=== PATIENT | female | born 1990 | race Caucasian/White ===

== ENCOUNTER 2016-05-13 00:01 | Emergency (ER) | payer OTHER ==
--- NOTE | 2016-05-13 00:55 | ED CLINICAL REPORT ---
Clinical Report - Physicians/Mid Levels [facility] [address] [place] [address] 05/13/2016 0:04 Patient: TARUN MARTINEZ I Time Seen: 00:18. Arrived- By private vehicle. Historian- patient. HISTORY OF PRESENT ILLNESS Chief Complaint: COUGH, SORE THROAT and FEVER. This started about 2 days ago and is still present. It was gradual in onset and has been constant and waxing/waning. The patient has had a cough, a sore throat, hoarseness, nasal congestion and fever. She has had chills, muscle aches and a nasal discharge. No sputum production, difficulty breathing or chest discomfort. Additional history - The patient has had contact with a sick significant other. They have had different symptoms. REVIEW OF SYSTEMS No calf pain, chest pain, pedal edema, palpitations or abdominal pain. No black stools, bloody stools, constipation, diarrhea or nausea. No vomiting or urinary problems. All systems otherwise negative, except as recorded above. SOCIAL HISTORY Current every day heavy tobacco smoker (cigarette)- less than 1 pack per day. History of drug use: methamphetamines. Is a recovering addict. No alcohol use. FAMILY HISTORY Denies family medical history. ADDITIONAL NOTES The nursing notes have been reviewed. PHYSICAL EXAM Vital Signs: 05/13/2016 00:20 BP: 125/78. HR: 128. RR: 20. O2 saturation: 99%. Temp: 98.3 F. Have been reviewed. Appearance: Alert. Head: Tenderness present to percussion/palpation of the sinuses. Eyes: Pupils equal, round and reactive to light. ENT: Moderate, thick, green nasal discharge present. Pharynx normal. No pharyngeal erythema or tonsillar exudate. Neck: Normal inspection. Neck supple. CVS: Normal heart rate and rhythm. Heart sounds normal. Respiratory: No respiratory distress. Breath sounds normal. Abdomen: Soft and nontender. No organomegaly. Back: Normal inspection. No CVA tenderness. Skin: Skin warm and dry. Normal skin color. No rash. Normal skin turgor. Extremities: Extremities exhibit normal ROM. No lower extremity edema. LABS, X-RAYS, AND EKG Laboratory Tests: Urine: (TORI: 05/13/2016 00:15) ( [facility] 05/13/2016 00:37) Final results Test Result Flag Units (Reference) URINE NEGATIVE Urine Drug Screen: (TORI: 05/13/2016 00:15) ( [facility] [place] 05/13/2016 00:47) Final results Test Result Flag Units (Reference) AMPHETAMINE/METHAMPHETAMINE POSITIVE H (NEGATIVE) BARBITURATE NEGATIVE (NEGATIVE) BENZODIAZEPINE NEGATIVE (NEGATIVE) CANNABINOID NEGATIVE (NEGATIVE) COCAINE NEGATIVE (NEGATIVE) ECSTASY POSITIVE H (NEGATIVE) METHADONE NEGATIVE (NEGATIVE) OPIATE NEGATIVE (NEGATIVE) The urine drug screen is a qualitative screening test fordrug overdose and abuse. All screen results should beconsidered as presumptive.Drugs screened for are as follows:BenzodiazepinesCocaineAmphetamines/MetamphetaminesTHC (Tetrahydrocannabinol)OpiatesBarbituratesEcstasyMethadonePositive results are unconfirmed. For confirmation, notifythe lab for the specimen to be sent to the reference lab.All confirmations must be performed by a differentmethodology.The ingestion of natural herbal and plant productscontaining Ephedra/Ephedra metabolites can produce in urineone or more substances capable of cross reacting withamphetamine/methamphetamine immunoassays. These testsprovide a preliminary result only. A more specificalternative chemical method must be used to obtain aconfirmed analytical result. Rapid Influenza Screen: (TORI: 05/13/2016 00:20) ( [facility] [place] 05/13/2016 00:31) Final results SPECIMEN DESCRIPTION: GREEN THICK Test Result Flag Units (Reference) RAPID INFLUENZA SCREEN CALLED TO: NA -- DATE: 05/13/16 INFLUENZA A: NEGATIVE SCREEN FOR INFLUENZA A INFLUENZA B: NEGATIVE SCREEN FOR INFLUENZA B . PROGRESS AND PROCEDURES Course of Care: Patient is stable. Patient/family counseled. Old medical records ordered. Old records unavailable. Disposition: Discharged. Condition: stable. CLINICAL IMPRESSION Acute upper respiratory infection. Substance abuse- methamphetamines. INSTRUCTIONS Drink plenty of fluids. Do not smoke- benefits of smoking cessation discussed (>3 -10 minutes). Seek medical help to quit smoking. Warnings: GENERAL WARNINGS: Return or contact your physician immediately if your condition worsens or changes unexpectedly, if not improving as expected, or if other problems arise. Understanding of the discharge instructions verbalized by patient. Follow-up with: [facility], , , [address], , [place], [address] Follow up in five days if not better. (Electronically signed by Johnny Cleary MD 05/21/2016 11:55)
--- NOTE | 2016-05-13 00:55 | ED ORDER SUMMARY ---
..... Patient: TARUN MARTINEZ I OrderSheet [facility] VisitID: [id number] [place] [address] 25y, F Registration Date/Time: 05/13/2016 ORDER SHEET Weight: 54.4 kg Allergies: No Known Drug Allergy GENERAL ORDERS: Rapid Influenza Screen (Nasal Pharyngeal) (green thick) Urgent (00:19 05/13/2016 EBonham verbal order read back to Amrik GRAY) (Ack 0:23 CHagerty ER Director Cost) (0:23 CHagerty ER Director Cost) Urine Drug Screen Urgent (00:20 05/13/2016 EBonham verbal order read back to Amrik GRAY) (Ack 0:23 CHagerty ER Director Cost) (0:24 EBonham) Urine Urgent (00:20 05/13/2016 EBonham verbal order read back to Amrik GRAY) (Ack 0:23 CHagerty ER Director Cost) (0:24 EBonham) MEDICATION ORDERS: IV FLUIDS: ORDER SHEET NOTES: [Electronically signed by Holland Garcia R.N. (01:05 05/13/2016)] [Electronically signed by Johnny Cleary MD (11:55 05/21/2016)] [Electronically locked/signed by Holland Garcia R.N. (01:05 05/13/2016)]
--- NOTE | 2016-05-13 00:55 | ED NURSING NOTES ---
Clinical Report - Nurses [facility] [address] [place] [address] 05/13/2016 0:04 Patient: TARUN MARTINEZ I TRIAGE Triage time 0005. Acuity: LEVEL 3. Chief Complaint: FEVER, COUGH, SORE THROAT and BODY ACHES. Alert. --00:23 Kathi Su 00:20 05/13/16. BP: 125/78. HR: 128. RR: 20. O2 saturation: 99%. Temp: 98.3 F. Pain level now 05/15. --00:23 Kathi Su. Weight: 54.4 kg. Height/Length: 61 inches. BMI: 22.7. --00:04 Kathi Su. Medications None. --00:21 Kathi Su. Allergies No Known Drug Allergy. --00:22 Kathi Su. History Arrived by private vehicle. Historian: patient. Onset. (10 days ago). ( Pt sts slight cold x 10 days ago, last few days cough and feeling sob severe). 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 PAST MEDICAL HX: Negative. SOCIAL HX: Light tobacco smoker (cigarette)- less than 1/2 a pack per day. History of drug use: methamphetamines. Is a recovering addict. --00:23 Kathi Su. Interventions ID band on patient. To treatment room. --00:23 Kathi Su. PHYSICAL ASSESSMENT Ambulatory to room. GENERAL / NEURO / PSYCH: Alert. Oriented X 4. Appears in distress. HEENT: Pupils equal, round and reactive to light. Mucous membranes are pink. RESPIRATORY: Respirations not labored. Nonproductive cough. Chest nontender. Breath sounds within normal limits. CVS: Normal sinus rhythm noted. Capillary refill less than 2 seconds. Pulses within normal limits. GI / : Abdomen soft and nontender and normal bowel sounds. SKIN: Skin intact. Skin is warm and dry. Normal skin turgor. --00:24 Kathi Su. NURSING PROGRESS NOTES Urine collected. Flu swab obtained. --00:24 Kathi Su Patient gowned. Reassurance given. Patient ready for evaluation- chart flagged. --00:24 Kathi Su 01:00. The patient is calm and resting quietly. RESPIRATORY: No respiratory distress. SKIN: Skin is warm and dry. --01:05 Holland Garcia R.N. DISPOSITION / DISCHARGE Departure time: 01:02. Condition at departure: stable. ( Dr. Cleary notified of pt vitals prior to discharge). No learning barriers present. Discharge instructions provided and reviewed with the patient. Patient verbalized understanding. Written instructions provided in Filipino. The patient was discharged home and unaccompanied at time of discharge. She left the Emergency Department ambulatory and via private vehicle. Patient driving. FALL RISK ASSESSMENT: Fall risk assessment completed. No fall risk identified. --01:03 Holland Garcia R.N. 01:01 05/13/16. BP: 121/75. HR: 115. RR: 17. O2 saturation: 96% on room air. Pain level now: 0/10. --01:03 Holland Garcia R.N. Locked/Released at 05/13/2016 1:05 by Holland Garcia R.N.
--- NOTE | 2016-05-13 00:55 | ED ORDER SUMMARY ---
..... Patient: TARUN MARTINEZ I OrderSheet [facility] VisitID: [id number] [place] [address] 25y, F Registration Date/Time: 05/13/2016 ORDER SHEET Weight: 54.4 kg Allergies: No Known Drug Allergy GENERAL ORDERS: Rapid Influenza Screen (Nasal Pharyngeal) (green thick) Urgent (00:19 05/13/2016 EBonham verbal order read back to Amrik GRAY) (Ack 0:23 CHagerty ER Cooker Loader) (0:23 CHagerty ER Cooker Loader) Urine Drug Screen Urgent (00:20 05/13/2016 EBonham verbal order read back to Amrik GRAY) (Ack 0:23 CHagerty ER Cooker Loader) (0:24 EBonham) Urine Urgent (00:20 05/13/2016 EBonham verbal order read back to Amrik GRAY) (Ack 0:23 CHagerty ER Cooker Loader) (0:24 EBonham) MEDICATION ORDERS: IV FLUIDS: ORDER SHEET NOTES: [Electronically signed by Holland Garcia R.N. (01:05 05/13/2016)] [Electronically signed by Johnny Cleary MD (11:55 05/21/2016)] [Electronically locked/signed by Holland Garcia R.N. (01:05 05/13/2016)]
--- NOTE | 2016-05-13 00:55 | ED CLINICAL REPORT ---
Clinical Report - Physicians/Mid Levels [facility] [address] [place] [address] 05/13/2016 0:04 Patient: TARUN MARTINEZ I Time Seen: 00:18. Arrived- By private vehicle. Historian- patient. HISTORY OF PRESENT ILLNESS Chief Complaint: COUGH, SORE THROAT and FEVER. This started about 2 days ago and is still present. It was gradual in onset and has been constant and waxing/waning. The patient has had a cough, a sore throat, hoarseness, nasal congestion and fever. She has had chills, muscle aches and a nasal discharge. No sputum production, difficulty breathing or chest discomfort. Additional history - The patient has had contact with a sick significant other. They have had different symptoms. REVIEW OF SYSTEMS No calf pain, chest pain, pedal edema, palpitations or abdominal pain. No black stools, bloody stools, constipation, diarrhea or nausea. No vomiting or urinary problems. All systems otherwise negative, except as recorded above. SOCIAL HISTORY Current every day heavy tobacco smoker (cigarette)- less than 1 pack per day. History of drug use: methamphetamines. Is a recovering addict. No alcohol use. FAMILY HISTORY Denies family medical history. ADDITIONAL NOTES The nursing notes have been reviewed. PHYSICAL EXAM Vital Signs: 05/13/2016 00:20 BP: 125/78. HR: 128. RR: 20. O2 saturation: 99%. Temp: 98.3 F. Have been reviewed. Appearance: Alert. Head: Tenderness present to percussion/palpation of the sinuses. Eyes: Pupils equal, round and reactive to light. ENT: Moderate, thick, green nasal discharge present. Pharynx normal. No pharyngeal erythema or tonsillar exudate. Neck: Normal inspection. Neck supple. CVS: Normal heart rate and rhythm. Heart sounds normal. Respiratory: No respiratory distress. Breath sounds normal. Abdomen: Soft and nontender. No organomegaly. Back: Normal inspection. No CVA tenderness. Skin: Skin warm and dry. Normal skin color. No rash. Normal skin turgor. Extremities: Extremities exhibit normal ROM. No lower extremity edema. LABS, X-RAYS, AND EKG Laboratory Tests: Urine: (TORI: 05/13/2016 00:15) ( [facility] [place] 05/13/2016 00:37) Final results Test Result Flag Units (Reference) URINE NEGATIVE Urine Drug Screen: (TORI: 05/13/2016 00:15) ( [facility] 05/13/2016 00:47) Final results Test Result Flag Units (Reference) AMPHETAMINE/METHAMPHETAMINE POSITIVE H (NEGATIVE) BARBITURATE NEGATIVE (NEGATIVE) BENZODIAZEPINE NEGATIVE (NEGATIVE) CANNABINOID NEGATIVE (NEGATIVE) COCAINE NEGATIVE (NEGATIVE) ECSTASY POSITIVE H (NEGATIVE) METHADONE NEGATIVE (NEGATIVE) OPIATE NEGATIVE (NEGATIVE) The urine drug screen is a qualitative screening test fordrug overdose and abuse. All screen results should beconsidered as presumptive.Drugs screened for are as follows:BenzodiazepinesCocaineAmphetamines/MetamphetaminesTHC (Tetrahydrocannabinol)OpiatesBarbituratesEcstasyMethadonePositive results are unconfirmed. For confirmation, notifythe lab for the specimen to be sent to the reference lab.All confirmations must be performed by a differentmethodology.The ingestion of natural herbal and plant productscontaining Ephedra/Ephedra metabolites can produce in urineone or more substances capable of cross reacting withamphetamine/methamphetamine immunoassays. These testsprovide a preliminary result only. A more specificalternative chemical method must be used to obtain aconfirmed analytical result. Rapid Influenza Screen: (TORI: 05/13/2016 00:20) ( [facility] 05/13/2016 00:31) Final results SPECIMEN DESCRIPTION: GREEN THICK Test Result Flag Units (Reference) RAPID INFLUENZA SCREEN CALLED TO: NA -- DATE: 05/13/16 INFLUENZA A: NEGATIVE SCREEN FOR INFLUENZA A INFLUENZA B: NEGATIVE SCREEN FOR INFLUENZA B . PROGRESS AND PROCEDURES Course of Care: Patient is stable. Patient/family counseled. Old medical records ordered. Old records unavailable. Disposition: Discharged. Condition: stable. CLINICAL IMPRESSION Acute upper respiratory infection. Substance abuse- methamphetamines. INSTRUCTIONS Drink plenty of fluids. Do not smoke- benefits of smoking cessation discussed (>3 -10 minutes). Seek medical help to quit smoking. Warnings: GENERAL WARNINGS: Return or contact your physician immediately if your condition worsens or changes unexpectedly, if not improving as expected, or if other problems arise. Understanding of the discharge instructions verbalized by patient. Follow-up with: [facility], , , [address], , [place], [address] Follow up in five days if not better. (Electronically signed by Johnny Cleary MD 05/21/2016 11:55)
--- NOTE | 2016-05-13 00:55 | ED NURSING NOTES ---
Clinical Report - Nurses [facility] [address] [place] [address] 05/13/2016 0:04 Patient: TARUN MARTINEZ I TRIAGE Triage time 0005. Acuity: LEVEL 3. Chief Complaint: FEVER, COUGH, SORE THROAT and BODY ACHES. Alert. --00:23 Kathi Su 00:20 05/13/16. BP: 125/78. HR: 128. RR: 20. O2 saturation: 99%. Temp: 98.3 F. Pain level now 05/15. --00:23 Kathi Su. Weight: 54.4 kg. Height/Length: 61 inches. BMI: 22.7. --00:04 Kathi Su. Medications None. --00:21 Kathi Su. Allergies No Known Drug Allergy. --00:22 Kathi Su. History Arrived by private vehicle. Historian: patient. Onset. (10 days ago). ( Pt sts slight cold x 10 days ago, last few days cough and feeling sob severe). 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 PAST MEDICAL HX: Negative. SOCIAL HX: Light tobacco smoker (cigarette)- less than 1/2 a pack per day. History of drug use: methamphetamines. Is a recovering addict. --00:23 Kathi Su. Interventions ID band on patient. To treatment room. --00:23 Kathi Su. PHYSICAL ASSESSMENT Ambulatory to room. GENERAL / NEURO / PSYCH: Alert. Oriented X 4. Appears in distress. HEENT: Pupils equal, round and reactive to light. Mucous membranes are pink. RESPIRATORY: Respirations not labored. Nonproductive cough. Chest nontender. Breath sounds within normal limits. CVS: Normal sinus rhythm noted. Capillary refill less than 2 seconds. Pulses within normal limits. GI / : Abdomen soft and nontender and normal bowel sounds. SKIN: Skin intact. Skin is warm and dry. Normal skin turgor. --00:24 Kathi Su. NURSING PROGRESS NOTES Urine collected. Flu swab obtained. --00:24 Kathi Su Patient gowned. Reassurance given. Patient ready for evaluation- chart flagged. --00:24 Kathi Su 01:00. The patient is calm and resting quietly. RESPIRATORY: No respiratory distress. SKIN: Skin is warm and dry. --01:05 Holland Garcia R.N. DISPOSITION / DISCHARGE Departure time: 01:02. Condition at departure: stable. ( Dr. Cleary notified of pt vitals prior to discharge). No learning barriers present. Discharge instructions provided and reviewed with the patient. Patient verbalized understanding. Written instructions provided in Algerian. The patient was discharged home and unaccompanied at time of discharge. She left the Emergency Department ambulatory and via private vehicle. Patient driving. FALL RISK ASSESSMENT: Fall risk assessment completed. No fall risk identified. --01:03 Holland Garcia R.N. 01:01 05/13/16. BP: 121/75. HR: 115. RR: 17. O2 saturation: 96% on room air. Pain level now: 0/10. --01:03 Holland Garcia R.N. Locked/Released at 05/13/2016 1:05 by Holland Garcia R.N.
--- NOTE | 2016-05-21 11:55 | ED MAR SUMMARY ---
..... Medication Administration Record [facility] [address] [place], [place] [id number] Patient: TARUN MARTINEZ I Visit ID: [id number] 25y, F Weight: 54.4 kg Height/Length: 61 in BMI: 22.7 ALLERGIES: No Known Drug Allergy
--- NOTE | 2016-05-21 11:55 | ED MED RECONCILIATION SUMMARY ---
Patient: TARUN MARTINEZ I Medication Reconciliation Report [facility] VisitID: [id number] [address] [place] [place] [address] 25y, F Registration Date/Time: 05/13/2016 Weight: 54.4 kg Height/Length: 61 in. BMI: 22.7 ALLERGIES: No Known Drug Allergy The patient's Home Medications are listed below: NONE. The source(s) of the original Home Medication information: Not obtained. The following Medications were given to the patient in the Emergency Department: None. The following Medications were prescribed to the patient: None.
--- NOTE | 2016-05-21 11:55 | ED MAR SUMMARY ---
..... Medication Administration Record [facility] [address] [place], [place] [id number] Patient: TARUN MARTINEZ I Visit ID: [id number] 25y, F Weight: 54.4 kg Height/Length: 61 in BMI: 22.7 ALLERGIES: No Known Drug Allergy
--- NOTE | 2016-05-21 11:55 | ED DISCHARGE INSTRUCTIONS ---
Patient: TARUN MARTINEZ I General Instructions [facility] VisitID: [id number] [address] [place] [address] 25y, F Registration Date/Time: 05/13/2016 Acute upper respiratory infection. Substance abuse- methamphetamines. INSTRUCTIONS Drink plenty of fluids. Do not smoke- benefits of smoking cessation discussed (>3 -10 minutes). Seek medical help to quit smoking. Warnings: GENERAL WARNINGS: Return or contact your physician immediately if your condition worsens or changes unexpectedly, if not improving as expected, or if other problems arise. Understanding of the discharge instructions verbalized by patient. Follow-up with: [facility], , , [address], [place], [id number] Follow up in five days if not better. ADDITIONAL INFORMATION Viral Respiratory Illness [Adult] You have an Upper Respiratory Illness (URI) caused by a virus. This illness is contagious during the first few days. It is spread through the air by coughing and sneezing or by direct contact (touching the sick person and then touching your own eyes, nose or mouth). Most viral illnesses go away within 7-10 days with rest and simple home remedies. Sometimes, the illness may last for several weeks. Antibiotics will not kill a virus and are generally not prescribed for this condition. Home Care: 1) If symptoms are severe, rest at home for the first 2-3 days. When you resume activity, don't let yourself get too tired. 2) Avoid being exposed to cigarette smoke (yours or others). 3) Tylenol (acetaminophen) or ibuprofen (Advil, Motrin) will help fever, muscle aching and headache. (Persons under 18 with fever should not take aspirin since this may cause liver damage.) 4) Your appetite may be poor, so a light diet is fine. Avoid dehydration by drinking 6-8 glasses of fluids per day (water, soft drinks, juices, tea, soup). Extra fluids will help loosen secretions in the nose and lungs. 5) Ldhd-ims-cjmrpwc cold medicines will not shorten the length of time youre sick, but they may be helpful for the following symptoms: cough (Robitussin DM); sore throat (Chloraseptic lozenges or spray); nasal and sinus congestion (Actifed, Sudafed, Chlortrimeton). Follow Up with your doctor or as advised if you dont improve over the next week. Get Prompt Medical Attention if any of the following occur: -- Cough with lots of colored sputum (mucus) or blood in your sputum -- Chest pain, shortness of breath, wheezing or have trouble breathing -- Severe headache; face, neck or ear pain -- Fever over 100.4 F (38.0 C) for more than three days -- You cant swallow due to throat pain Drug Abuse Use and abuse of such drugs as marijuana, amphetamines (speed, crank), cocaine, heroin or prescription pain medicines (Vicodin, codeine), sedatives and sleeping pills (Valium, Klonopin), PCP, mescaline and LSD may lead to addiction or dependence. Once this occurs, you are at greater risk for any of the following: Craving for the drug and unable to stop using the drug even though you think you want to stop (psychological dependence) Drug withdrawal symptoms if you stop taking the drug (physical dependence) Loss of your job or your family Arrest, conviction and prison sentence for possession of an illegal substance or for driving under the influence of such a substance Accidental injuries to yourself or others while you are under the influence of the drug (in a car or at home). HIV infection (much greater risk if you use IV drugs) Other sexually transmitted diseases (herpes, chlamydia, gonorrhea and others) Severe and fatal infection of the heart valves (if you use IV drugs) Stroke, heart attack, hepatitis B or C, kidney failure from overdose Home Care: Admit you have a drug problem. Ask for help from your family and close friends. Seek professional help. This could be in the form of individual psychotherapy or counseling or an outpatient, inpatient, or residential drug treatment program. Join a self-help group for drug abuse. Avoid friends who abuse drugs themselves or tempt you to continue abusing drugs. Eat a balanced diet and begin a regular exercise program. Follow Up with your doctor or as advised by our staff. Contact one of the resources below for help. National [place] on Alcoholism and Drug Dependence www.ncadd.org 760-639-RJUX Narcotics Anonymous www.na.org 573-552-5348 National Alcohol and Substance Abuse Information Center (for referral to treatment programs) www.addictioncareDctioions.RealDirect 251-731-9586 Get Prompt Medical Attention if any of the following occur: Agitation, anxiety, unable to sleep Unintended weight loss (more than 10 to 15 pounds over 3 months) Seizure Chest pain Fever of 100.4F (38C) or higher, or as directed by your healthcare provider Excess drowsiness or inability to be awakened Shortness of breath Slow breathing under 8 breaths per minute Cough with colored sputum Redness, swelling or tenderness at an injection site How To Quit Smoking Smoking is one of the hardest habits to break. About half of all those who have ever smoked have been able to quit, and most of those (about 70%) who still smoke want to quit. Here are some of the best ways to stop smoking. Keep Trying: It takes most smokers about 8 tries before they are finally able to fully quit. So, the more often you try and fail, the better your chance of quitting the next time! So, don't give up! Go Cold [place]: Most ex-smokers quit cold turkey. Trying to cut back gradually doesn't seem to work as well, perhaps because it continues the smoking habit. Also, it is possible to fool yourself by inhaling more while smoking fewer cigarettes. This results in the same amount of nicotine in your body! Get Support: Support programs can make an important difference, especially for the heavy smoker. These groups offer lectures, methods to change your behavior and peer support. Call the free national Quitline for more information. 055-KCMP-GTN (784-121-5551). Low-cost or free programs are offered by many hospitals, local chapters of the [place] [employer] (832-795-1898) and the [place] [employer] (485-141-5506). Support at home is important too. Non-smokers can help by offering praise and encouragement. If the smoker fails to quit, encourage them to try again! Ktii-Xie-Sqhgmnt Medicines: For those who can't quit on their own, Nicotine Replacement Therapy (NRT) may make quitting much easier. Certain aids such as the nicotine patch, gum and lozenge are available without a prescription. However, it is best to use these under the guidance of your doctor. The skin patch provides a steady supply of nicotine to the body. Nicotine gum and lozenge gives temporary bursts of low levels of nicotine. Both methods take the edge off the craving for cigarettes. WARNING: If you feel symptoms of nicotine overdose, such as nausea, vomiting, dizziness, weakness, or fast heartbeat, stop using these and see your doctor. Prescription Medicines: After evaluating your smoking patterns and prior attempts at quitting, your doctor may offer a prescription medicine such as bupropion (Zyban, Wellbutrin), varenicline (Chantix, Champix), a niocotine inhaler or nasal spray. Each has its unique advantage and side effects which your doctor can review with you. Health Benefits Of Quitting: The benefits of quitting start right away and keep improving the longer you go without smokin minutes: blood pressure and pulse return to normal 8 hours: oxygen levels return to normal 2 days: ability to smell and taste begins to improve as damaged nerves start to regrow 2-3 weeks: circulation and lung function improves 1-9 months: decreased cough, congestion and shortness of breath; less tired 1 year: risk of heart attack decreases by half 5 years: risk of lung cancer decreases by half; risk of stroke becomes the same as a non-smoker For information about how to quit smoking, visit the following links: National Cancer [place] , Clearing the Air, Quit Smoking Today - an online booklet. http://www.smokefree.gov/pubs/clearing_the_air.pdf Smokefree.gov http://smokefree.gov/ QuitNet http://www.quitnet.com/ You have been given the following additional information: Uri, Viral, No Abx (Adult) Drug Abuse Smoking Cessation (Electronically signed by Johnny Cleary MD 05/21/2016 11:55)
--- NOTE | 2016-05-21 11:55 | ED MED RECONCILIATION SUMMARY ---
Patient: TARUN MARTINEZ I Medication Reconciliation Report [facility] VisitID: [id number] [address] [place] [address] 25y, F Registration Date/Time: 05/13/2016 Weight: 54.4 kg Height/Length: 61 in. BMI: 22.7 ALLERGIES: No Known Drug Allergy The patient's Home Medications are listed below: NONE. The source(s) of the original Home Medication information: Not obtained. The following Medications were given to the patient in the Emergency Department: None. The following Medications were prescribed to the patient: None.
--- NOTE | 2016-05-21 11:55 | ED DISCHARGE INSTRUCTIONS ---
Patient: TARUN MARTINEZ I General Instructions [facility] VisitID: [id number] [address] [place] [address] 25y, F Registration Date/Time: 05/13/2016 Acute upper respiratory infection. Substance abuse- methamphetamines. INSTRUCTIONS Drink plenty of fluids. Do not smoke- benefits of smoking cessation discussed (>3 -10 minutes). Seek medical help to quit smoking. Warnings: GENERAL WARNINGS: Return or contact your physician immediately if your condition worsens or changes unexpectedly, if not improving as expected, or if other problems arise. Understanding of the discharge instructions verbalized by patient. Follow-up with: [facility], , , [address], [place], [address] Follow up in five days if not better. ADDITIONAL INFORMATION Viral Respiratory Illness [Adult] You have an Upper Respiratory Illness (URI) caused by a virus. This illness is contagious during the first few days. It is spread through the air by coughing and sneezing or by direct contact (touching the sick person and then touching your own eyes, nose or mouth). Most viral illnesses go away within 7-10 days with rest and simple home remedies. Sometimes, the illness may last for several weeks. Antibiotics will not kill a virus and are generally not prescribed for this condition. Home Care: 1) If symptoms are severe, rest at home for the first 2-3 days. When you resume activity, don't let yourself get too tired. 2) Avoid being exposed to cigarette smoke (yours or others). 3) Tylenol (acetaminophen) or ibuprofen (Advil, Motrin) will help fever, muscle aching and headache. (Persons under 18 with fever should not take aspirin since this may cause liver damage.) 4) Your appetite may be poor, so a light diet is fine. Avoid dehydration by drinking 6-8 glasses of fluids per day (water, soft drinks, juices, tea, soup). Extra fluids will help loosen secretions in the nose and lungs. 5) Asry-vft-gwlabah cold medicines will not shorten the length of time youre sick, but they may be helpful for the following symptoms: cough (Robitussin DM); sore throat (Chloraseptic lozenges or spray); nasal and sinus congestion (Actifed, Sudafed, Chlortrimeton). Follow Up with your doctor or as advised if you dont improve over the next week. Get Prompt Medical Attention if any of the following occur: -- Cough with lots of colored sputum (mucus) or blood in your sputum -- Chest pain, shortness of breath, wheezing or have trouble breathing -- Severe headache; face, neck or ear pain -- Fever over 100.4 F (38.0 C) for more than three days -- You cant swallow due to throat pain Drug Abuse Use and abuse of such drugs as marijuana, amphetamines (speed, crank), cocaine, heroin or prescription pain medicines (Vicodin, codeine), sedatives and sleeping pills (Valium, Klonopin), PCP, mescaline and LSD may lead to addiction or dependence. Once this occurs, you are at greater risk for any of the following: Craving for the drug and unable to stop using the drug even though you think you want to stop (psychological dependence) Drug withdrawal symptoms if you stop taking the drug (physical dependence) Loss of your job or your family Arrest, conviction and alf sentence for possession of an illegal substance or for driving under the influence of such a substance Accidental injuries to yourself or others while you are under the influence of the drug (in a car or at home). HIV infection (much greater risk if you use IV drugs) Other sexually transmitted diseases (herpes, chlamydia, gonorrhea and others) Severe and fatal infection of the heart valves (if you use IV drugs) Stroke, heart attack, hepatitis B or C, kidney failure from overdose Home Care: Admit you have a drug problem. Ask for help from your family and close friends. Seek professional help. This could be in the form of individual psychotherapy or counseling or an outpatient, inpatient, or residential drug treatment program. Join a self-help group for drug abuse. Avoid friends who abuse drugs themselves or tempt you to continue abusing drugs. Eat a balanced diet and begin a regular exercise program. Follow Up with your doctor or as advised by our staff. Contact one of the resources below for help. National [place] on Alcoholism and Drug Dependence www.ncadd.org 803-588-AKTO Narcotics Anonymous www.na.org 904-628-5182 National Alcohol and Substance Abuse Information Center (for referral to treatment programs) www.addictioncareNaturVentionions.Lydia 394-436-6924 Get Prompt Medical Attention if any of the following occur: Agitation, anxiety, unable to sleep Unintended weight loss (more than 10 to 15 pounds over 3 months) Seizure Chest pain Fever of 100.4F (38C) or higher, or as directed by your healthcare provider Excess drowsiness or inability to be awakened Shortness of breath Slow breathing under 8 breaths per minute Cough with colored sputum Redness, swelling or tenderness at an injection site How To Quit Smoking Smoking is one of the hardest habits to break. About half of all those who have ever smoked have been able to quit, and most of those (about 70%) who still smoke want to quit. Here are some of the best ways to stop smoking. Keep Trying: It takes most smokers about 8 tries before they are finally able to fully quit. So, the more often you try and fail, the better your chance of quitting the next time! So, don't give up! Go Cold [place]: Most ex-smokers quit cold turkey. Trying to cut back gradually doesn't seem to work as well, perhaps because it continues the smoking habit. Also, it is possible to fool yourself by inhaling more while smoking fewer cigarettes. This results in the same amount of nicotine in your body! Get Support: Support programs can make an important difference, especially for the heavy smoker. These groups offer lectures, methods to change your behavior and peer support. Call the free national Quitline for more information. 092-ODYO-SBY (391-084-8597). Low-cost or free programs are offered by many hospitals, local chapters of the [place] [employer] (490-335-2442) and the [place] [employer] (619-257-7079). Support at home is important too. Non-smokers can help by offering praise and encouragement. If the smoker fails to quit, encourage them to try again! Czji-Mdf-Anrzhar Medicines: For those who can't quit on their own, Nicotine Replacement Therapy (NRT) may make quitting much easier. Certain aids such as the nicotine patch, gum and lozenge are available without a prescription. However, it is best to use these under the guidance of your doctor. The skin patch provides a steady supply of nicotine to the body. Nicotine gum and lozenge gives temporary bursts of low levels of nicotine. Both methods take the edge off the craving for cigarettes. WARNING: If you feel symptoms of nicotine overdose, such as nausea, vomiting, dizziness, weakness, or fast heartbeat, stop using these and see your doctor. Prescription Medicines: After evaluating your smoking patterns and prior attempts at quitting, your doctor may offer a prescription medicine such as bupropion (Zyban, Wellbutrin), varenicline (Chantix, Champix), a niocotine inhaler or nasal spray. Each has its unique advantage and side effects which your doctor can review with you. Health Benefits Of Quitting: The benefits of quitting start right away and keep improving the longer you go without smokin minutes: blood pressure and pulse return to normal 8 hours: oxygen levels return to normal 2 days: ability to smell and taste begins to improve as damaged nerves start to regrow 2-3 weeks: circulation and lung function improves 1-9 months: decreased cough, congestion and shortness of breath; less tired 1 year: risk of heart attack decreases by half 5 years: risk of lung cancer decreases by half; risk of stroke becomes the same as a non-smoker For information about how to quit smoking, visit the following links: National Cancer [place] , Clearing the Air, Quit Smoking Today - an online booklet. http://www.smokefree.gov/pubs/clearing_the_air.pdf Smokefree.gov http://smokefree.gov/ QuitNet http://www.quitnet.com/ You have been given the following additional information: Uri, Viral, No Abx (Adult) Drug Abuse Smoking Cessation (Electronically signed by Johnny Cleary MD 05/21/2016 11:55)
== END 2016-05-13 01:02 | disposition home or self-care (01) ==
LOC: ED SRH 00:01
DX: J06.9 Acute upper respiratory infection, unspecified (principal); F15.10 Other stimulant abuse, uncomplicated; F17.210 Nicotine dependence, cigarettes, uncomplicated
CPT/HCPCS: 91400; 92760; 92761; 92762; 92763; 92764; 92765; 92766; 92767; 93070

== ENCOUNTER 2016-08-15 21:18 | Emergency (ER) | payer OTHER ==
--- NOTE | 2016-08-15 23:34 | ED ORDER SUMMARY ---
..... Patient: TARUN MARTINEZ I OrderSheet [facility] VisitID: [id number] [place] [address] 26y, F Registration Date/Time: 08/15/2016 ORDER SHEET Weight: 56.6 kg (stated) Allergies: No Known Drug Allergy GENERAL ORDERS: UA-Culture if indicated Urgent (21:38 08/15/2016 DDavis R.N. per protocol) (21:38 DDavis R.N.) Urine Urgent (21:38 08/15/2016 DDavis R.N. per protocol) (21:38 DDavis R.N.) Wet Prep (Cervix) (...) Urgent (21:51 08/15/2016 Lubna Valencia) (Ack 21:53 [facility] Power Plant Technician) (23:13 Candelariaekimana) GC/Chlamydia (Cervix) (...) Urgent (21:51 08/15/2016 Lubna Valencia) (Ack 21:53 [employer] Power Plant Technician) (23:13 Christosna) CBC w Diff Urgent (21:52 08/15/2016 Lubna Valencia) (Ack 21:53 [employer] Power Plant Technician) (22:01 GREGORYavis R.N.) CMP Urgent (21:52 08/15/2016 Lubna Valenica) (Ack 21:53 [employer] Power Plant Technician) (22:01 GREGORYavis R.N.) Amylase Urgent (21:52 08/15/2016 Lubna Valencia) (Ack 21:53 [facility] [employer] Power Plant Technician) (22:01 DDavis R.N.) Lipase Urgent (21:52 08/15/2016 Lubna Valencia) (Ack 21:53 [facility] [employer] Power Plant Technician) (22:01 GREGORYavis R.N.) Pelvic Exam Setup (21:52 08/15/2016 Lubna Valencia) (21:53 GREGORYavis R.N.) (21:56 Keyla) MEDICATION ORDERS: IV FLUIDS: IV Saline Lock (21:52 08/15/2016 Lubna Valencia) (22:02 DDavis R.N.) ORDER SHEET NOTES: [Electronically signed by Holland Garcia R.N. (23:55 08/15/2016)] [Electronically signed by Jer Johnson Dr. (:30 08/16/2016)] [Electronically locked/signed by Holland Garcia R.N. (23:55 08/15/2016)]
--- NOTE | 2016-08-15 23:34 | ED ORDER SUMMARY ---
..... Patient: TARUN MARTINEZ I OrderSheet [facility] VisitID: [id number] [place] [address] 26y, F Registration Date/Time: 08/15/2016 ORDER SHEET Weight: 56.6 kg (stated) Allergies: No Known Drug Allergy GENERAL ORDERS: UA-Culture if indicated Urgent (21:38 08/15/2016 DDavis R.N. per protocol) (21:38 DDavis R.N.) Urine Urgent (21:38 08/15/2016 DDavis R.N. per protocol) (21:38 DDavis R.N.) Wet Prep (Cervix) (...) Urgent (21:51 08/15/2016 Lubna Valencia) (Ack 21:53 Diamond [facility] Technical Sales Associate) (23:13 Candelariaekimana) GC/Chlamydia (Cervix) (...) Urgent (21:51 08/15/2016 Lubna Valencia) (Ack 21:53 [employer] Technical Sales Associate) (23:13 Christosna) CBC w Diff Urgent (21:52 08/15/2016 Lubna Valencia) (Ack 21:53 [employer] Technical Sales Associate) (22:01 GREGORYavis R.N.) CMP Urgent (21:52 08/15/2016 Lubna Valencia) (Ack 21:53 [employer] Technical Sales Associate) (22:01 GREGORYavis R.N.) Amylase Urgent (21:52 08/15/2016 Lubna Valencia) (Ack 21:53 Diamond [employer] Technical Sales Associate) (22:01 DDavis R.N.) Lipase Urgent (21:52 08/15/2016 Lubna Valencia) (Ack 21:53 Diamond [employer] Technical Sales Associate) (22:01 GREGORYavis R.N.) Pelvic Exam Setup (21:52 08/15/2016 Lubna Valencia) (21:53 GREGORYavis R.N.) (21:56 Keyla) MEDICATION ORDERS: IV FLUIDS: IV Saline Lock (21:52 08/15/2016 Lubna Valencia) (22:02 DDavis R.N.) ORDER SHEET NOTES: [Electronically signed by Holland Garcia R.N. (23:55 08/15/2016)] [Electronically signed by Jer Johnson Dr. (:30 08/16/2016)] [Electronically locked/signed by Holland Garcia R.N. (23:55 08/15/2016)]
--- NOTE | 2016-08-15 23:34 | ED NURSING NOTES ---
Clinical Report - Nurses [facility] [address] [place] [address] 08/15/2016 21:18 Patient: TARUN MARTINEZ I TRIAGE Triage time 21:23. Acuity: LEVEL 3. Chief Complaint: ABDOMINAL PAIN. Alert. PATSY COMA SCORE: Patsy Coma Scale: 15- eyes open spontaneously (4); best verbal response- oriented x 4 (5); best motor response- obeys commands (6). --21:32 Markus Craven R.N. 21:23 08/15/16. BP: 136/80. HR: 120. RR: 16 (regular and unlabored). O2 saturation: 100% on room air. Temp: 98.6 F (oral). --21:32 Markus Craven R.N. Weight: 56.6 kg stated. Height/Length: 61 inches Per Patient. BMI: 23.6. --21:27 Markus Craven R.N. Medications None. --21:24 Markus Craven R.N. Allergies No Known Drug Allergy. --21:24 Markus Craven R.N. History Arrived by private vehicle. Historian: patient. Unaccompanied. Onset. (3 days ago). ( vaginal discharge and burning.). SOCIAL HX: Smoker- current status unknown (cigar). History of drug use: methamphetamines. Recently used drugs today. No alcohol use. ( Denies HI/SI, states that she feels safe at home.). ABUSE ASSESSMENT: No report of abuse. SELF HARM ASSESSMENT: A self harm assessment was performed. The patient answered "no" to the question "Do you have thoughts of harming or killing yourself?" and "Are you here because you tried to hurt yourself?". FALL RISK ASSESSMENT: Fall risk assessment completed. No fall risk identified. NUTRITIONAL RISK ASSESSMENT: The nutritional risk assessment revealed no deficiencies. FUNCTIONAL ASSESSMENT: Functional assessment: no impairments noted. LEARNING NEEDS ASSESSMENT: The learning needs assessment revealed no barriers. SKIN INTEGRITY ASSESSMENT: Skin integrity risk assessment completed. No skin integrity risk identified. --21:32 Markus Craven R.N. PROBLEMS: Substance Abuse. --21:24 Markus Craven R.N. ADDITIONAL SURGERIES: Cervical Cell Removal "LEEP Procedure". --21:28 Markus Craven R.N. Interventions ID band on patient. To treatment room. --21:32 Markus Craven R.N. PHYSICAL ASSESSMENT Ambulatory to room. GENERAL / NEURO / PSYCH: Alert. Oriented X 4. HEENT: Mucous membranes are pink. RESPIRATORY: Respirations not labored. CVS: Capillary refill less than 2 seconds. GI / : Abdominal tenderness. Yellow vaginal discharge present. ( last bm yesterday). SKIN: Skin is warm and dry. --21:33 Markus Craven R.N. NURSING PROGRESS NOTES Patient gowned. Head of bed elevated. Reassurance given. Two patient identifiers checked. Call light placed in reach. Side rails up x 1. Bed placed in lowest position. Brakes of bed on. Patient ready for evaluation- chart flagged. Patient waiting for evaluation. --21:34 Markus Craven R.N. 21:58 08/15/2016 Site #1 started via IV in the right antecubital space with an 20g angiocath, with aseptic technique and good blood return; one attempt. Blood drawn: rainbow set. Labeled in the presence of the patient and sent to the lab. Saline lock flushed with 10 mL saline. --22:02 Markus Craven R.N. 23:45. The patient is calm and resting quietly. Overall patient status is improved- she states feels better. SKIN: Skin is warm and dry. Skin color within normal limits. --23:49 Holland Garcia R.N. PELVIC EXAM: Pelvic exam performed by ED physician. Assisted by a tech. Preparation: pelvic tray; patient placed in lithotomy position. Procedure: speculum exam. Specimens collected and sent to lab: GC, chlamydia and wet prep. Status post-procedure: she was stable and no complications were noted. Total time of assist / procedure: 15 minutes. --23:54 Marla Mendoza. DISPOSITION / DISCHARGE Departure time: 23:48. Condition at departure: stable. No learning barriers present. Discharge instructions provided and reviewed with the patient. Reviewed medication(s) side effects, precautions, dosing and course information. Prescription(s) given to the patient. Patient verbalized understanding. Written instructions provided in Turkish. The patient was discharged home and accompanied by academic department chair. She left the Emergency Department ambulatory and via private vehicle. [employer] driving. FALL RISK ASSESSMENT: Fall risk assessment completed. No fall risk identified. --23:48 Holland Garcia R.N. 23:47 08/15/16. BP: 118/70. HR: 99. RR: 15. O2 saturation: 100%. Pain level now: 05/15. --23:48 Holland Garcia R.N. 23:42 08/15/2016 Site #1 removed upon discharge. Catheter intact. Bandage applied. --23:48 Holland Garcia R.N. Locked/Released at 08/15/2016 23:55 by Holland Garcia R.N.
--- NOTE | 2016-08-15 23:34 | ED CLINICAL REPORT ---
Clinical Report - Physicians/Mid Levels [facility] [address] [place] [address] 08/15/2016 21:18 Patient: TARUN MARTINEZ I Time Seen: 21:23; initial patient contact. Arrived- By private vehicle. Historian- patient. HISTORY OF PRESENT ILLNESS Chief Complaint: ABDOMINAL PAIN. At its maximum, severity described as mild. When seen in the E.D., severity described as mild. Modifying factors. Not worsened by anything. Not relieved by anything. It is described as burning. No radiation. It is described as located in the periumbilical area and in the pelvic area. This started about 3 days ago and is still present. No nausea, loss of appetite, vomiting or diarrhea. Similar symptoms previously: None. Recent medical care: Not recently seen/assessed. REVIEW OF SYSTEMS No constipation, difficulty with urination, pain with urination, urinary frequency or abnormal bleeding. No fever or chills. Last bowel movement: yesterday. She has had a vaginal discharge. All systems otherwise negative, except as recorded above. PAST HISTORY Substance Abuse. SURGERIES: Cervical Cell Removal "LEEP Procedure". Medications: None. Allergies: No Known Drug Allergy. SOCIAL HISTORY Current every day smoker (cigar). History of drug use: methamphetamines. No alcohol use. ADDITIONAL NOTES The nursing notes have been reviewed. PHYSICAL EXAM Vital Signs: 08/15/2016 21:23 BP: 136/80. HR: 120. RR: 16. O2 saturation: 100%. Temp: 98.6 F. Have been reviewed. Blood pressure normal. Tachycardic. Respiratory rate normal. Temperature normal. Oxygen saturation normal. Appearance: Alert. Oriented X3. No acute distress. ENT: Pharynx normal. CVS: Tachycardia. Heart sounds normal. Rhythm normal. Respiratory: No respiratory distress. Breath sounds normal. Abdomen: Soft. Mild tenderness in the suprapubic area. No guarding or rebound tenderness. Bowel sounds normal. No organomegaly. No mass. Back: Normal inspection. No CVA tenderness. : Normal external exam. A scant amount of thick, white, yellow and malodorous vaginal discharge present. Bimanual exam normal. (Female tech Marla present for exam). Skin: Skin warm and dry. Normal skin color. Neuro: Oriented X 3. LABS, X-RAYS, AND EKG Laboratory Tests: UA-Culture if indicated: (TORI: 08/15/2016 21:25) ( [facility] 08/15/2016 22:21) Final results Test Result Flag Units (Reference) URINE COLOR YELLOW URINE APPEARANCE CLEAR URINE GLUCOSE NEGATIVE (NEGATIVE) URINE BILIRUBIN NEGATIVE (NEGATIVE) URINE KETONE NEGATIVE (NEGATIVE) URINE SPECIFIC GRAVITY 1.025 (1.010-1.030) URINE PH 6.0 (5.0-8.0) URINE PROTEIN NEGATIVE (NEGATIVE) URINE UROBILINOGEN 0.2 EU/dL (0.2-1.0) URINE NITRITE NEGATIVE (NEGATIVE) URINE BLOOD NEGATIVE (NEGATIVE) URINE LEUK ESTERASE NEGATIVE (NEGATIVE) URINE RBC 0-1 rbc/hpf (0-1) URINE WBC 0-1 wbc/hpf (0-1) URINE EPITHELIAL CELLS 1-3 EPI/hpf (0-5) URINE BACTERIA TRACE (<1+) (NONE SEEN) URINE COMMENT CULT NOT INDICATED URINE CULTURES ARE SET-UP BASED ON THE FOLLOWING CRITERIA:POSITIVE NITRITEPOSITIVE LEUKOCYTE ESTERASEGREATER THAN 10 WHITE BLOOD CELLSMODERATE (2+) OR GREATER BACTERIA Urine: (TORI: 08/15/2016 21:25) ( [facility] 08/15/2016 22:01) Final results Test Result Flag Units (Reference) URINE NEGATIVE CBC w Diff: (TORI: 08/15/2016 21:53) ( [facility] 08/15/2016 22:19) Final results Test Result Flag Units (Reference) WHITE BLOOD COUNT 7.3 K/uL (4.5-11.5) RED BLOOD COUNT 4.42 M/uL (4.00-5.20) HEMOGLOBIN 13.0 gm/dL (12.0-16.0) HEMATOCRIT 38.8 % (36.0-46.0) MEAN CELL VOLUME 88 fL (80-100) MEAN CORPUSCULAR HGB 29 pg (26-34) MEAN CORPUSCULAR HGB CONC 34 g/dL (31-37) RED CELL DISTRIBUTION WIDTH 12.9 % (11.6-14.8) PLATELET COUNT 247 K/uL (150-400) NEUTROPHIL % 62.8 % (50-75) LYMPH % 29.9 % (25-40) MONO % 6.8 % (3-14) EOSINOPHIL % 0 % (0-4) BASOPHIL % 0.5 % (0-2) CMP: (TORI: 08/15/2016 21:53) ( [facility]:27[facility] Final results Test Result Flag Units (Reference) GLUCOSE 98 mg/dL (70-110) BUN 11 mg/dL (7-18) CREATININE 0.8 mg/dL (0.6-1.3) Estimated GFR >60 mL/min Estimated GFR- >60 mL/min Note: Persistent reduction over 3 months in eGFR<60 mL/min/1.73 m2 defines CKD. Patients with eGFR values>=60 mL/min/1.73 m2 may also have CKD if evidence ofpersistent proteinuria. Additional information may be foundat www.kidney.org. SODIUM 144 mmol/L (136-145) POTASSIUM 3.7 mmol/L (3.5-5.1) CHLORIDE 106 mmol/L (98-107) CARBON DIOXIDE 30 mmol/L (21-32) CALCIUM 8.6 mg/dL (8.5-10.1) TOTAL PROTEIN 7.3 g/dL (6.4-8.2) ALBUMIN 3.7 g/dL (3.3-5.0) BILIRUBIN, TOTAL 0.3 mg/dL (0.0-1.0) ALKALINE PHOSPHATASE 69 U/L (46-116) AST (SGOT) 15 U/L (15-37) ALT (SGPT) 22 U/L (12-78) LIPASE 72 L U/L (73-393) AMYLASE 35 U/L (25-115) Wet Prep: (TORI: 08/15/2016 23:05) ( [facility] 23:17[facility] Final results SPECIMEN DESCRIPTION: ... Test Result Flag Units (Reference) WET MOUNT CLUE CELLS:: MANY * EPITHELIAL CELLS: MANY -- SOURCE?: CERVIX WHITE BLOOD CELLS: MODERATE TRICHOMONAS:: NONE -- YEAST:: NONE . PROGRESS AND PROCEDURES Disposition: Discharged home in good condition. Condition: good. CLINICAL IMPRESSION Acute mild bacterial vaginitis INSTRUCTIONS Your Current Medications: CONTINUE TAKING THE FOLLOWING MEDICATIONS: None*. Prescription Medications: Metronidazole 500 mg: Take 1 tablet orally every 12 hours for 7 days. No refill Follow-up: Follow up with your doctor in about two days. Call for an appointment. Screening today revealed the patient's blood pressure to be in the pre-hypertensive range. The patient should follow up with a primary care provider for blood pressure management. (Electronically signed by Jer Johnson Dr. 08/16/2016 1:30)
--- NOTE | 2016-08-15 23:34 | ED CLINICAL REPORT ---
Clinical Report - Physicians/Mid Levels [facility] [address] [place] [address] 08/15/2016 21:18 Patient: TARUN MARTINEZ I Time Seen: 21:23; initial patient contact. Arrived- By private vehicle. Historian- patient. HISTORY OF PRESENT ILLNESS Chief Complaint: ABDOMINAL PAIN. At its maximum, severity described as mild. When seen in the E.D., severity described as mild. Modifying factors. Not worsened by anything. Not relieved by anything. It is described as burning. No radiation. It is described as located in the periumbilical area and in the pelvic area. This started about 3 days ago and is still present. No nausea, loss of appetite, vomiting or diarrhea. Similar symptoms previously: None. Recent medical care: Not recently seen/assessed. REVIEW OF SYSTEMS No constipation, difficulty with urination, pain with urination, urinary frequency or abnormal bleeding. No fever or chills. Last bowel movement: yesterday. She has had a vaginal discharge. All systems otherwise negative, except as recorded above. PAST HISTORY Substance Abuse. SURGERIES: Cervical Cell Removal "LEEP Procedure". Medications: None. Allergies: No Known Drug Allergy. SOCIAL HISTORY Current every day smoker (cigar). History of drug use: methamphetamines. No alcohol use. ADDITIONAL NOTES The nursing notes have been reviewed. PHYSICAL EXAM Vital Signs: 08/15/2016 21:23 BP: 136/80. HR: 120. RR: 16. O2 saturation: 100%. Temp: 98.6 F. Have been reviewed. Blood pressure normal. Tachycardic. Respiratory rate normal. Temperature normal. Oxygen saturation normal. Appearance: Alert. Oriented X3. No acute distress. ENT: Pharynx normal. CVS: Tachycardia. Heart sounds normal. Rhythm normal. Respiratory: No respiratory distress. Breath sounds normal. Abdomen: Soft. Mild tenderness in the suprapubic area. No guarding or rebound tenderness. Bowel sounds normal. No organomegaly. No mass. Back: Normal inspection. No CVA tenderness. : Normal external exam. A scant amount of thick, white, yellow and malodorous vaginal discharge present. Bimanual exam normal. (Female tech Marla present for exam). Skin: Skin warm and dry. Normal skin color. Neuro: Oriented X 3. LABS, X-RAYS, AND EKG Laboratory Tests: UA-Culture if indicated: (TORI: 08/15/2016 21:25) ( [facility] 08/15/2016 22:21) Final results Test Result Flag Units (Reference) URINE COLOR YELLOW URINE APPEARANCE CLEAR URINE GLUCOSE NEGATIVE (NEGATIVE) URINE BILIRUBIN NEGATIVE (NEGATIVE) URINE KETONE NEGATIVE (NEGATIVE) URINE SPECIFIC GRAVITY 1.025 (1.010-1.030) URINE PH 6.0 (5.0-8.0) URINE PROTEIN NEGATIVE (NEGATIVE) URINE UROBILINOGEN 0.2 EU/dL (0.2-1.0) URINE NITRITE NEGATIVE (NEGATIVE) URINE BLOOD NEGATIVE (NEGATIVE) URINE LEUK ESTERASE NEGATIVE (NEGATIVE) URINE RBC 0-1 rbc/hpf (0-1) URINE WBC 0-1 wbc/hpf (0-1) URINE EPITHELIAL CELLS 1-3 EPI/hpf (0-5) URINE BACTERIA TRACE (<1+) (NONE SEEN) URINE COMMENT CULT NOT INDICATED URINE CULTURES ARE SET-UP BASED ON THE FOLLOWING CRITERIA:POSITIVE NITRITEPOSITIVE LEUKOCYTE ESTERASEGREATER THAN 10 WHITE BLOOD CELLSMODERATE (2+) OR GREATER BACTERIA Urine: (TORI: 08/15/2016 21:25) ( [facility] 08/15/2016 22:01) Final results Test Result Flag Units (Reference) URINE NEGATIVE CBC w Diff: (TORI: 08/15/2016 21:53) ( [facility] 08/15/2016 22:19) Final results Test Result Flag Units (Reference) WHITE BLOOD COUNT 7.3 K/uL (4.5-11.5) RED BLOOD COUNT 4.42 M/uL (4.00-5.20) HEMOGLOBIN 13.0 gm/dL (12.0-16.0) HEMATOCRIT 38.8 % (36.0-46.0) MEAN CELL VOLUME 88 fL (80-100) MEAN CORPUSCULAR HGB 29 pg (26-34) MEAN CORPUSCULAR HGB CONC 34 g/dL (31-37) RED CELL DISTRIBUTION WIDTH 12.9 % (11.6-14.8) PLATELET COUNT 247 K/uL (150-400) NEUTROPHIL % 62.8 % (50-75) LYMPH % 29.9 % (25-40) MONO % 6.8 % (3-14) EOSINOPHIL % 0 % (0-4) BASOPHIL % 0.5 % (0-2) CMP: (TORI: 08/15/2016 21:53) ( [facility] 22:27) Final results Test Result Flag Units (Reference) GLUCOSE 98 mg/dL (70-110) BUN 11 mg/dL (7-18) CREATININE 0.8 mg/dL (0.6-1.3) Estimated GFR >60 mL/min Estimated GFR- >60 mL/min Note: Persistent reduction over 3 months in eGFR<60 mL/min/1.73 m2 defines CKD. Patients with eGFR values>=60 mL/min/1.73 m2 may also have CKD if evidence ofpersistent proteinuria. Additional information may be foundat www.kidney.org. SODIUM 144 mmol/L (136-145) POTASSIUM 3.7 mmol/L (3.5-5.1) CHLORIDE 106 mmol/L (98-107) CARBON DIOXIDE 30 mmol/L (21-32) CALCIUM 8.6 mg/dL (8.5-10.1) TOTAL PROTEIN 7.3 g/dL (6.4-8.2) ALBUMIN 3.7 g/dL (3.3-5.0) BILIRUBIN, TOTAL 0.3 mg/dL (0.0-1.0) ALKALINE PHOSPHATASE 69 U/L (46-116) AST (SGOT) 15 U/L (15-37) ALT (SGPT) 22 U/L (12-78) LIPASE 72 L U/L (73-393) AMYLASE 35 U/L (25-115) Wet Prep: (TORI: 08/15/2016 23:05) ( [facility] 08/15[facility] 23:17) Final results SPECIMEN DESCRIPTION: ... Test Result Flag Units (Reference) WET MOUNT CLUE CELLS:: MANY * EPITHELIAL CELLS: MANY -- SOURCE?: CERVIX WHITE BLOOD CELLS: MODERATE TRICHOMONAS:: NONE -- YEAST:: NONE . PROGRESS AND PROCEDURES Disposition: Discharged home in good condition. Condition: good. CLINICAL IMPRESSION Acute mild bacterial vaginitis INSTRUCTIONS Your Current Medications: CONTINUE TAKING THE FOLLOWING MEDICATIONS: None*. Prescription Medications: Metronidazole 500 mg: Take 1 tablet orally every 12 hours for 7 days. No refill Follow-up: Follow up with your doctor in about two days. Call for an appointment. Screening today revealed the patient's blood pressure to be in the pre-hypertensive range. The patient should follow up with a primary care provider for blood pressure management. (Electronically signed by Jer Johnson Dr. 08/16/2016 1:30)
--- NOTE | 2016-08-15 23:34 | ED NURSING NOTES ---
Clinical Report - Nurses [facility] [address] [place] [address] 08/15/2016 21:18 Patient: TARUN MARTINEZ I TRIAGE Triage time 21:23. Acuity: LEVEL 3. Chief Complaint: ABDOMINAL PAIN. Alert. PATSY COMA SCORE: Patsy Coma Scale: 15- eyes open spontaneously (4); best verbal response- oriented x 4 (5); best motor response- obeys commands (6). --21:32 Markus Craven R.N. 21:23 08/15/16. BP: 136/80. HR: 120. RR: 16 (regular and unlabored). O2 saturation: 100% on room air. Temp: 98.6 F (oral). --21:32 Markus Craven R.N. Weight: 56.6 kg stated. Height/Length: 61 inches Per Patient. BMI: 23.6. --21:27 Markus Craven R.N. Medications None. --21:24 Markus Craven R.N. Allergies No Known Drug Allergy. --21:24 Markus Craven R.N. History Arrived by private vehicle. Historian: patient. Unaccompanied. Onset. (3 days ago). ( vaginal discharge and burning.). SOCIAL HX: Smoker- current status unknown (cigar). History of drug use: methamphetamines. Recently used drugs today. No alcohol use. ( Denies HI/SI, states that she feels safe at home.). ABUSE ASSESSMENT: No report of abuse. SELF HARM ASSESSMENT: A self harm assessment was performed. The patient answered "no" to the question "Do you have thoughts of harming or killing yourself?" and "Are you here because you tried to hurt yourself?". FALL RISK ASSESSMENT: Fall risk assessment completed. No fall risk identified. NUTRITIONAL RISK ASSESSMENT: The nutritional risk assessment revealed no deficiencies. FUNCTIONAL ASSESSMENT: Functional assessment: no impairments noted. LEARNING NEEDS ASSESSMENT: The learning needs assessment revealed no barriers. SKIN INTEGRITY ASSESSMENT: Skin integrity risk assessment completed. No skin integrity risk identified. --21:32 Markus Craven R.N. PROBLEMS: Substance Abuse. --21:24 Markus Craven R.N. ADDITIONAL SURGERIES: Cervical Cell Removal "LEEP Procedure". --21:28 Markus Craven R.N. Interventions ID band on patient. To treatment room. --21:32 Markus Craven R.N. PHYSICAL ASSESSMENT Ambulatory to room. GENERAL / NEURO / PSYCH: Alert. Oriented X 4. HEENT: Mucous membranes are pink. RESPIRATORY: Respirations not labored. CVS: Capillary refill less than 2 seconds. GI / : Abdominal tenderness. Yellow vaginal discharge present. ( last bm yesterday). SKIN: Skin is warm and dry. --21:33 Markus Craven R.N. NURSING PROGRESS NOTES Patient gowned. Head of bed elevated. Reassurance given. Two patient identifiers checked. Call light placed in reach. Side rails up x 1. Bed placed in lowest position. Brakes of bed on. Patient ready for evaluation- chart flagged. Patient waiting for evaluation. --21:34 Markus Craven R.N. 21:58 08/15/2016 Site #1 started via IV in the right antecubital space with an 20g angiocath, with aseptic technique and good blood return; one attempt. Blood drawn: rainbow set. Labeled in the presence of the patient and sent to the lab. Saline lock flushed with 10 mL saline. --22:02 Markus Craven R.N. 23:45. The patient is calm and resting quietly. Overall patient status is improved- she states feels better. SKIN: Skin is warm and dry. Skin color within normal limits. --23:49 Holland Garcia R.N. PELVIC EXAM: Pelvic exam performed by ED physician. Assisted by a tech. Preparation: pelvic tray; patient placed in lithotomy position. Procedure: speculum exam. Specimens collected and sent to lab: GC, chlamydia and wet prep. Status post-procedure: she was stable and no complications were noted. Total time of assist / procedure: 15 minutes. --23:54 Marla Mendoza. DISPOSITION / DISCHARGE Departure time: 23:48. Condition at departure: stable. No learning barriers present. Discharge instructions provided and reviewed with the patient. Reviewed medication(s) side effects, precautions, dosing and course information. Prescription(s) given to the patient. Patient verbalized understanding. Written instructions provided in Amharic. The patient was discharged home and accompanied by hand tube bender. She left the Emergency Department ambulatory and via private vehicle. [employer] Needs driving. FALL RISK ASSESSMENT: Fall risk assessment completed. No fall risk identified. --23:48 Holland Garcia R.N. 23:47 08/15/16. BP: 118/70. HR: 99. RR: 15. O2 saturation: 100%. Pain level now: 05/15. --23:48 Holland Garcia R.N. 23:42 08/15/2016 Site #1 removed upon discharge. Catheter intact. Bandage applied. --23:48 Holland Garcia R.N. Locked/Released at 08/15/2016 23:55 by Holland Garcia R.N.
--- NOTE | 2016-08-16 01:31 | ED MAR SUMMARY ---
..... Medication Administration Record [facility] [address] [place], [place] [id number] Patient: TARUN MARTINEZ I Visit ID: [id number] 26y, F Weight: 56.6 kg Height/Length: 61 in BMI: 23.6 ALLERGIES: No Known Drug Allergy
--- NOTE | 2016-08-16 01:31 | ED DISCHARGE INSTRUCTIONS ---
Patient: TARUN MARTINEZ I General Instructions [facility] VisitID: [id number] [place] [address] 26y, F Registration Date/Time: 08/15/2016 Acute mild bacterial vaginitis INSTRUCTIONS Your Current Medications: CONTINUE TAKING THE FOLLOWING MEDICATIONS: None*. Prescription Medications: Metronidazole 500 mg: Take 1 tablet orally every 12 hours for 7 days. No refill Follow-up: Follow up with your doctor in about two days. Call for an appointment. Screening today revealed the patient's blood pressure to be in the pre-hypertensive range. The patient should follow up with a primary care provider for blood pressure management. ADDITIONAL INFORMATION Bacterial Vaginosis You have a bacterial infection of the vagina called bacterial vaginosis (BV). It may also be called gardnerella or non-specific vaginitis. BV occurs when the "bad" bacteria outnumber the "good" bacteria that are normally present in the vagina. Symptoms include foul-smelling vaginal discharge (most noticeable after vaginal intercourse). There may also be burning with urination. The burning is caused as the urine passes over the inflamed outer vaginal area. The cause of bacterial vaginosis is not certain. However, your risk is higher if you recently began a new sexual relationship, or have had many sex partners in the past. Your risk is also higher if you douche often. While bacterial vaginosis most often occurs only in sexually active women, this is not a true sexually transmitted disease. You did not get this from your partner. You cannot give it to your partner. The infection may be related to temporary changes in the pH of vaginal fluids after being exposed to semen. Home Care: Keep the genital area clean and free of discharge. Do this by wearing an absorbent sanitary pad and changing it often. Shower daily. When you shower, clean the outer vaginal area with plain soap and water. Do not douche during treatment unless advised to do so by your doctor. Routine douching after treatment is no longer recommended to clean the vagina. It raises your risk of vaginal infection and pelvic inflammatory disease. Avoid having sex until you have finished all antibiotic medicine and all symptoms have gone away. Wear cotton underwear or cotton-lined panty hose. Dont wear pants that are too tight. Limiting the number of sex partners you have lowers your risk of this and other vaginal infections, STDs, and HIV. Take all medicine as directed until it is gone, even if you are feeling better. If you dont do this, symptoms might return. Follow Up with your doctor if symptoms dont go away after the medicine is finished. Get Prompt Medical Attention if any of the following occur: Fever of 100.4F (38C) or higher, or as directed by your healthcare provider Lower abdominal pain Rash or joint pain Painful sores around the outer vaginal area or on your partners penis Metronidazole Oral tablet What is this medicine? METRONIDAZOLE (me troe NI da zole) is an antiinfective. It is used to treat certain kinds of bacterial and protozoal infections. It will not work for colds, flu, or other viral infections. How should I use this medicine? Take this medicine by mouth with a full glass of water. Follow the directions on the prescription label. Take your medicine at regular intervals. Do not take your medicine more often than directed. Take all of your medicine as directed even if you think you are better. Do not skip doses or stop your medicine early. Talk to your hot press operator regarding the use of this medicine in children. Special care may be needed. What side effects may I notice from receiving this medicine? Side effects that you should report to your doctor or health adult daycare coordinator as soon as possible: allergic reactions like skin rash or hives, swelling of the face, lips, or tongue confusion, clumsiness difficulty speaking discolored or sore mouth dizziness fever, infection numbness, tingling, pain or weakness in the hands or feet trouble passing urine or change in the amount of urine redness, blistering, peeling or loosening of the skin, including inside the mouth seizures unusually weak or tired vaginal irritation, dryness, or discharge Side effects that usually do not require medical attention (report to your doctor or health adult daycare coordinator if they continue or are bothersome): diarrhea headache irritability metallic taste nausea stomach pain or cramps trouble sleeping What may interact with this medicine? Do not take this medicine with any of the following medications: alcohol or any product that contains alcohol amprenavir oral solution cisapride disulfiram dofetilide dronedarone paclitaxel injection pimozide ritonavir oral solution sertraline oral solution sulfamethoxazole-trimethoprim injection thioridazine ziprasidone This medicine may also interact with the following medications: cimetidine lithium other medicines that prolong the QT interval (cause an abnormal heart rhythm) phenobarbital phenytoin warfarin What if I miss a dose? If you miss a dose, take it as soon as you can. If it is almost time for your next dose, take only that dose. Do not take double or extra doses. Where should I keep my medicine? Keep out of the reach of children. Store at room temperature below 25 degrees C (77 degrees F). Protect from light. Keep container tightly closed. Throw away any unused medicine after the expiration date. What should I tell my health care provider before I take this medicine? They need to know if you have any of these conditions: anemia or other blood disorders disease of the nervous system fungal or yeast infection if you drink alcohol containing drinks liver disease seizures an unusual or allergic reaction to metronidazole, or other medicines, foods, dyes, or preservatives or trying to get breast-feeding What should I watch for while using this medicine? Tell your doctor or health adult daycare coordinator if your symptoms do not improve or if they get worse. You may get drowsy or dizzy. Do not drive, use machinery, or do anything that needs mental alertness until you know how this medicine affects you. Do not stand or sit up quickly, especially if you are an older patient. This reduces the risk of dizzy or fainting spells. Avoid alcoholic drinks while you are taking this medicine and for three days afterward. Alcohol may make you feel dizzy, sick, or flushed. If you are being treated for a sexually transmitted disease, avoid sexual contact until you have finished your treatment. Your sexual partner may also need treatment. You have been given the following additional information: Vaginitis, Bacterial Metronidazole Oral tablet (Electronically signed by Jer Johnson Dr. 08/16/2016 1:30)
--- NOTE | 2016-08-16 01:31 | ED MED RECONCILIATION SUMMARY ---
Patient: TARUN MARTINEZ I Medication Reconciliation Report [facility] VisitID: [id number] [address] [place] [address] 26y, F Registration Date/Time: 08/15/2016 Weight: 56.6 kg Height/Length: 61 in. BMI: 23.6 ALLERGIES: No Known Drug Allergy The patient's Home Medications are listed below: NONE. The source(s) of the original Home Medication information: Not obtained. The following Medications were given to the patient in the Emergency Department: None. The following Medications were prescribed to the patient: Metronidazole 500 mg: Take 1 tablet orally every 12 hours for 7 days. No refill -- Jer Johnson Dr.
--- NOTE | 2016-08-16 01:31 | ED DISCHARGE INSTRUCTIONS ---
Patient: TARUN MARTINEZ I General Instructions [facility] VisitID: [id number] [place] [address] 26y, F Registration Date/Time: 08/15/2016 Acute mild bacterial vaginitis INSTRUCTIONS Your Current Medications: CONTINUE TAKING THE FOLLOWING MEDICATIONS: None*. Prescription Medications: Metronidazole 500 mg: Take 1 tablet orally every 12 hours for 7 days. No refill Follow-up: Follow up with your doctor in about two days. Call for an appointment. Screening today revealed the patient's blood pressure to be in the pre-hypertensive range. The patient should follow up with a primary care provider for blood pressure management. ADDITIONAL INFORMATION Bacterial Vaginosis You have a bacterial infection of the vagina called bacterial vaginosis (BV). It may also be called gardnerella or non-specific vaginitis. BV occurs when the "bad" bacteria outnumber the "good" bacteria that are normally present in the vagina. Symptoms include foul-smelling vaginal discharge (most noticeable after vaginal intercourse). There may also be burning with urination. The burning is caused as the urine passes over the inflamed outer vaginal area. The cause of bacterial vaginosis is not certain. However, your risk is higher if you recently began a new sexual relationship, or have had many sex partners in the past. Your risk is also higher if you douche often. While bacterial vaginosis most often occurs only in sexually active women, this is not a true sexually transmitted disease. You did not get this from your partner. You cannot give it to your partner. The infection may be related to temporary changes in the pH of vaginal fluids after being exposed to semen. Home Care: Keep the genital area clean and free of discharge. Do this by wearing an absorbent sanitary pad and changing it often. Shower daily. When you shower, clean the outer vaginal area with plain soap and water. Do not douche during treatment unless advised to do so by your doctor. Routine douching after treatment is no longer recommended to clean the vagina. It raises your risk of vaginal infection and pelvic inflammatory disease. Avoid having sex until you have finished all antibiotic medicine and all symptoms have gone away. Wear cotton underwear or cotton-lined panty hose. Dont wear pants that are too tight. Limiting the number of sex partners you have lowers your risk of this and other vaginal infections, STDs, and HIV. Take all medicine as directed until it is gone, even if you are feeling better. If you dont do this, symptoms might return. Follow Up with your doctor if symptoms dont go away after the medicine is finished. Get Prompt Medical Attention if any of the following occur: Fever of 100.4F (38C) or higher, or as directed by your healthcare provider Lower abdominal pain Rash or joint pain Painful sores around the outer vaginal area or on your partners penis Metronidazole Oral tablet What is this medicine? METRONIDAZOLE (me troe NI da zole) is an antiinfective. It is used to treat certain kinds of bacterial and protozoal infections. It will not work for colds, flu, or other viral infections. How should I use this medicine? Take this medicine by mouth with a full glass of water. Follow the directions on the prescription label. Take your medicine at regular intervals. Do not take your medicine more often than directed. Take all of your medicine as directed even if you think you are better. Do not skip doses or stop your medicine early. Talk to your accounts receivable coordinator regarding the use of this medicine in children. Special care may be needed. What side effects may I notice from receiving this medicine? Side effects that you should report to your doctor or health student career development specialist as soon as possible: allergic reactions like skin rash or hives, swelling of the face, lips, or tongue confusion, clumsiness difficulty speaking discolored or sore mouth dizziness fever, infection numbness, tingling, pain or weakness in the hands or feet trouble passing urine or change in the amount of urine redness, blistering, peeling or loosening of the skin, including inside the mouth seizures unusually weak or tired vaginal irritation, dryness, or discharge Side effects that usually do not require medical attention (report to your doctor or health student career development specialist if they continue or are bothersome): diarrhea headache irritability metallic taste nausea stomach pain or cramps trouble sleeping What may interact with this medicine? Do not take this medicine with any of the following medications: alcohol or any product that contains alcohol amprenavir oral solution cisapride disulfiram dofetilide dronedarone paclitaxel injection pimozide ritonavir oral solution sertraline oral solution sulfamethoxazole-trimethoprim injection thioridazine ziprasidone This medicine may also interact with the following medications: cimetidine lithium other medicines that prolong the QT interval (cause an abnormal heart rhythm) phenobarbital phenytoin warfarin What if I miss a dose? If you miss a dose, take it as soon as you can. If it is almost time for your next dose, take only that dose. Do not take double or extra doses. Where should I keep my medicine? Keep out of the reach of children. Store at room temperature below 25 degrees C (77 degrees F). Protect from light. Keep container tightly closed. Throw away any unused medicine after the expiration date. What should I tell my health care provider before I take this medicine? They need to know if you have any of these conditions: anemia or other blood disorders disease of the nervous system fungal or yeast infection if you drink alcohol containing drinks liver disease seizures an unusual or allergic reaction to metronidazole, or other medicines, foods, dyes, or preservatives or trying to get breast-feeding What should I watch for while using this medicine? Tell your doctor or health student career development specialist if your symptoms do not improve or if they get worse. You may get drowsy or dizzy. Do not drive, use machinery, or do anything that needs mental alertness until you know how this medicine affects you. Do not stand or sit up quickly, especially if you are an older patient. This reduces the risk of dizzy or fainting spells. Avoid alcoholic drinks while you are taking this medicine and for three days afterward. Alcohol may make you feel dizzy, sick, or flushed. If you are being treated for a sexually transmitted disease, avoid sexual contact until you have finished your treatment. Your sexual partner may also need treatment. You have been given the following additional information: Vaginitis, Bacterial Metronidazole Oral tablet (Electronically signed by Jer Johnson Dr. 08/16/2016 1:30)
--- NOTE | 2016-08-16 01:31 | ED MAR SUMMARY ---
..... Medication Administration Record [address] [place], [place] [id number] Patient: TARUN MARTINEZ I Visit ID: [id number] 26y, F Weight: 56.6 kg Height/Length: 61 in BMI: 23.6 ALLERGIES: No Known Drug Allergy
--- NOTE | 2016-08-16 01:31 | ED MED RECONCILIATION SUMMARY ---
Patient: TARUN MARTINEZ I Medication Reconciliation Report [facility] VisitID: [id number] [address] [place] [address] 26y, F Registration Date/Time: 08/15/2016 Weight: 56.6 kg Height/Length: 61 in. BMI: 23.6 ALLERGIES: No Known Drug Allergy The patient's Home Medications are listed below: NONE. The source(s) of the original Home Medication information: Not obtained. The following Medications were given to the patient in the Emergency Department: None. The following Medications were prescribed to the patient: Metronidazole 500 mg: Take 1 tablet orally every 12 hours for 7 days. No refill -- Jer Johnson Dr.
== END 2016-08-15 23:48 | disposition home or self-care (01) ==
LOC: ED SRH 21:18
DX: N76.0 Acute vaginitis (principal); F17.210 Nicotine dependence, cigarettes, uncomplicated
CPT/HCPCS: 90004; 90100; 90195; 91227; 91228; 92235; 92530; 93070; 95059